=== PATIENT | female | born 1965 | race Caucasian/White ===

== ENCOUNTER 2016-12-07 17:16 | Emergency (ER) | payer OTHER ==
[2016-12-07 17:27] VITALS: PULSE 77; RESP 16
[2016-12-07] MEDS ORDERED: LET GEL TOPICAL 1 EA SYR TP ONE (18:09)
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
[2016-12-07] MEDS ORDERED: CEPHALEXIN 500MG PREPACK#4 BTL TAKEHOME ONE (19:45)
[2016-12-07] MEDS ORDERED: BACITRACIN OINTMENT 1 PACKET TP ONE (19:49)
[2016-12-07 19:55] VITALS: BP 98/86; TEMP 98.1; O2SAT 94
== END 2016-12-07 20:04 | disposition home or self-care (01) ==
DX: S60.512A Abrasion of left hand, initial encounter (principal); V18.0XXA Pedal cycle driver injured in noncollision transport accident in nontraffic accident, initial encounter; Y92.410 Unspecified street and highway as the place of occurrence of the external cause; Y99.8 Other external cause status; Y93.55 Activity, bike riding